=== PATIENT | female | born 1970 | race Caucasian/White ===

== ENCOUNTER 2022-09-18 13:09 | Emergency (ER) | payer MEDICAID ==
[~2022-09-18] VITALS: Ht 162.6 cm; Wt 104.3 kg
[~2022-09-18 13:09] MED LIST: ACET-8905 PO
[2022-09-18 13:16] VITALS: BP 126/55
[2022-09-18] MEDS ORDERED: MORPHINE SULFATE 5 MG/ML VIAL IM ONE (14:15)
--- NOTE | 2022-09-18 14:20 | NUR ---
PATIENT TAKEN TO XRAY VIA W/C
--- NOTE | 2022-09-18 14:27 | NUR ---
PATIENT RETURNED FROM XRAY VIA W/C
[2022-09-18] MEDS ORDERED: MORPHINE SULFATE 10 MG/ML VIAL IM ONE (14:30)
--- NOTE | 2022-09-18 14:30 | NUR ---
51/F PRESENTS TO ED WITH C/O HEADACHE, BACK AND NECK PAIN X2 DAYS, DENIES RECENT INJURY OR TRAUMA. REPORTS TAKING PERCOCET AND GABAPENTIN WITH NO RELIEF.
[2022-09-18 14:51] VITALS: BP 137/48
[2022-09-18] MEDS ORDERED: diphenhydrAMINE 50 MG CAP PO ONE (15:05)
--- NOTE | 2022-09-18 15:21 | NUR ---
PT BEGAN DEVELOPING HIVES TO R UPPER ARM FROM BP CUFF, DENIES SOB/THROAT SWELLING. ELYSSA NAIK NOTIFIED. PT MEDICATED WITH BENADRYL. SPO2 98%
[2022-09-18] MEDS ORDERED: KETOROLAC 30 MG/ML VIAL IM ONE (15:40)
--- NOTE | 2022-09-18 16:36 | NUR ---
Patient discharged with v/s stable. Written and verbal after care instructions FOR SHOULDER PAIN AND CALCIFIC TENDINITIS given and explained. Patient alert, oriented and verbalized understanding of instructions. Ambulatory with steady gait. All questions addressed prior to discharge. ID band removed. Patient advised to follow up with PMD. Rx given. Opportunity to ask questions provided and answered.
[2022-09-18] MEDS ORDERED: KETO10TA2 PO (16:38)
== END 2022-09-18 16:36 | disposition home or self-care (01) ==
LOC: MED 13:09
DX: M65.812 Other synovitis and tenosynovitis, left shoulder (principal); R03.0 Elevated blood-pressure reading, without diagnosis of hypertension; J45.909 Unspecified asthma, uncomplicated; Z88.1 Allergy status to other antibiotic agents; Z79.899 Other long term (current) drug therapy
CPT/HCPCS: 73030; 96372; 99284; J1885; J2270; Q0163

== ENCOUNTER 2022-12-10 11:25 | Emergency (ER) | payer MEDICAID ==
[~2022-12-10] VITALS: Ht 162.6 cm; Wt 99.8 kg
[~2022-12-10 11:25] MED LIST changes: +KETO10TA2 PO
[2022-12-10 11:48] VITALS: BP 136/60; PULSE 74; RESP 18; TEMP 97.5
--- NOTE | 2022-12-10 11:53 | NUR ---
52YO F PRESENTS W/RLQ PAIN W/BURNING SENSATION, EPIGASTRIC PAIN, N,V,D, FEVER, WICK, DIZZY X 4 DAYS. DENIES CHANGE IN DIET, FLU SYMPTOMS, AOX4, NO VISUAL DISTRESS, SAFETY MAINTAINED. HX: ASHTMA, CERVICAL SPINE SURGERY MEDS: PERCOCET ALLERGIES: AMOXICILLIN
--- NOTE | 2022-12-10 12:42 | NUR ---
PATIENT AMBULATED TO BED 07
[2022-12-10] MEDS ORDERED: DIPHENOXYLATE /ATROPINE 2.5 MG TAB PO ONE (13:20)
[2022-12-10] MEDS ORDERED: NACL 0.9% 1,000 ML IV ONE (13:20)
[2022-12-10] MEDS ORDERED: KETOROLAC 30 MG/ML VIAL IVP ONE (13:20)
[2022-12-10 14:04] LABS: HEMOGLOBIN 12.3 g/dL (12.0-16.0); MEAN CORPUSCULAR HEMOGLOBIN 30 pg (27-31); MEAN CORPUSCULAR HGB CONC 34 g/dL (33-37); MEAN CORPUSCULAR VOLUME 88.9 fL (80-94); PLATELET COUNT (AUTO) 170 K/uL (140-450); RED BLOOD CELL COUNT(AUTO) 4.05 MIL/uL (4.20-5.40); RED CELL DISTRIBUTION WIDTH 13.4 % (11.6-13.7); WHITE BLOOD COUNT (AUTO) 5.3 K/uL (4.8-10.8)
[2022-12-10] MEDS ORDERED: fentaNYL citrate 0.05 MG/ML VIAL IVP ONE (14:10)
[2022-12-10 14:49] LABS: BASOPHILS % (MANUAL) 0 % (0-2); EOSINOPHILS % (MANUAL) 0 % (0-4); LYMPHOCYTES % (MANUAL) 22 % (20-46); MONOCYTES % (MANUAL) 9 % (5-12)
[2022-12-10 15:02] LABS: ALBUMIN 3.2 g/dL (3.4-5.0); ANION GAP 13.1 (8-16); CARBON DIOXIDE 26.8 mmol/L (21-32); CREATININE 0.7 mg/dL (0.6-1.3); POTASSIUM 3.9 mmol/L (3.5-5.1); TOTAL BILIRUBIN 0.3 mg/dL (0.0-1.0)
[2022-12-10] MEDS ORDERED: METOCLOPRAMIDE 10 MG/2 ML INJ VIAL IVP ONE (15:35)
[2022-12-10] MEDS ORDERED: diphenhydrAMINE 50 MG/ML VIAL IVP ONE (15:35)
[2022-12-10] MEDS ORDERED: PANTOPRAZOLE 40 MG INJ VIAL IVP ONE (15:35)
[2022-12-10] MEDS ORDERED: DICY10CA14 PO (16:23)
[2022-12-10] MEDS ORDERED: LOPE2TAB42 PO (16:23)
[2022-12-10] MEDS ORDERED: FAMO-92 PO (16:23)
[2022-12-10 16:34] VITALS: BP 128/61; PULSE 71; RESP 14; TEMP 98.5; O2SAT 99
--- NOTE | 2022-12-10 16:34 | NUR ---
Patient discharged with v/s stable. Written and verbal after care instructions given and explained. Patient alert, oriented and verbalized understanding of instructions. Ambulatory with steady gait. All questions addressed prior to discharge. ID band removed. Patient advised to follow up with PMD. Rx of DICYCLOMINE,PEPCID, LOPERAMIDE given. Opportunity to ask questions provided and answered.
--- NOTE | 2022-12-10 18:08 | NUR ---
The patient's care was reviewed and supervised by ED Agency Nurse 9, RN, RN.
== END 2022-12-10 18:08 | disposition home or self-care (01) ==
LOC: MED 11:25
DX: R10.84 Generalized abdominal pain (principal); R19.7 Diarrhea, unspecified; R51.9 Headache, unspecified; J45.909 Unspecified asthma, uncomplicated; Z79.899 Other long term (current) drug therapy; Z79.1 Long term (current) use of non-steroidal anti-inflammatories (NSAID); Z88.0 Allergy status to penicillin; Z91.048 Other nonmedicinal substance allergy status
CPT/HCPCS: 36415; 80053; 83690; 85025; 93005; 96361; 96374; 96375; 99284; C9113; J1200; J1885; J2765; J3010; J7030

== ENCOUNTER 2023-03-21 13:52 | Emergency (ER) | payer MEDICAID ==
[~2023-03-21] VITALS: Ht 162.6 cm; Wt 97.5 kg
[~2023-03-21 13:52] MED LIST changes: +DICY10CA2 PO; +FAMO-92 PO; +LOPE2TAB42 PO
[2023-03-21 14:33] VITALS: BP 143/61; PULSE 68; RESP 14; TEMP 97.6; O2SAT 100
[2023-03-21] MEDS ORDERED: KETOROLAC 30 MG/ML VIAL IM ONE (15:30)
== END 2023-03-21 17:24 | disposition home or self-care (01) ==
LOC: MED 13:52
DX: S82.492A Other fracture of shaft of left fibula, initial encounter for closed fracture (principal); J45.909 Unspecified asthma, uncomplicated; Z79.899 Other long term (current) drug therapy; Z88.0 Allergy status to penicillin; W18.39XA Other fall on same level, initial encounter; Y92.89 Other specified places as the place of occurrence of the external cause; Y93.89 Activity, other specified; Y99.8 Other external cause status
CPT/HCPCS: 29505; 73562; 73610; 96372; 99284; J1885; 29515